=== PATIENT | male | born 1960 ===

== ENCOUNTER → 2022-09-20 | Outpatient (CLI) | payer OTHER | LOC: LAB SHORT 07:53 → PLD 07:53 | DX: R23.4 Changes in skin texture (principal); R23.8 Other skin changes | CPT/HCPCS: 88312 ==

== ENCOUNTER → 2023-07-19 | Outpatient (CLI) | payer OTHER | LOC: LAB 14:49 → LAB SHORT 14:49 | DX: R23.4 Changes in skin texture (principal); L53.9 Erythematous condition, unspecified | CPT/HCPCS: 88312 ==